=== PATIENT | female | born 1975 | race Caucasian/White ===

== ENCOUNTER 2016-05-27 09:56 | Inpatient (IN) | payer BC ==
[2016-05-27 10:34] LABS: Hematocrit 39.5 % (37.0-47.0); Hemoglobin 13.5 gm/dL (12.5-16.0); Mean Cell Volume 90.6 fl (78-100); Mean Corpuscular Hgb Conc 34.2 g/dl (32-36); Mean Platelet Volume 11.6 fl (6.0-9.5); Neutrophil # 7.9 K/mm3 (1.3-6.0); Platelet Count 212 K/mm3 (150-450); Red Blood Count 4.36 M/mm3 (4.2-5.4); White Blood Count 8.7 K/mm3 (4.0-10.5)
[2016-05-27] MEDS ORDERED: MORPHINE SULFATE 2 MG/ML DISP.SYRIN IV ONE ×3 (10:49→15:47)
[2016-05-27] MEDS ORDERED: ONDANSETRON HCL/PF 2 MG/ML VIAL IV ONE ×2 (10:49→15:47)
[2016-05-27] MEDS ORDERED: NORMAL SALINE 1,000 ML IV ONE (10:49)
[2016-05-27 10:55] LABS: Urine Bilirubin Negative (NEGATIVE); Urine Ketone 15 mg/dL (NEGATIVE); Urine Nitrite Negative (NEGATIVE); Urine Protein 30 mg/dL (NEGATIVE); Urine Specific Gravity 1.015 SP.GR. (1.005-1.010); Urine Urobilinogen Normal (NORMAL)
[2016-05-27 10:57] LABS: Albumin * 4.1 gm/dl (3.4-5.0); Anion Gap 13.6 mmol/L (6.8-13.8); Bilirubin, Total 0.6 mg/dL (0.0-1.1); Ca. Corrected For Albumin 8.3 mg/dL (8.4-10.2); Calcium * 8.7 mg/dL (7.9-10.9); Carbon Dioxide 25.7 mmol/L (24-32.6); Potassium 4.3 mmol/L (3.4-4.6); Total Protein 7.8 gm/dL (6.2-8.2)
--- NOTE | 2016-05-27 11:01 | ERNOTE ---
Abdominal HPI - Narrative Date of Service: 05/27/16 - General Chief Complaint: Abdominal Pain Time Seen by Provider: 05/27/16 10:41 Source: patient Exam Limitations: no limitations - Immun/Allergies/Home Medications Immunizatons: IMMUNIZATION HX Immunizations Up to Date Yes History of Influenza Vaccine Yes Hx Pneumococcal Vaccination Yes Allergies/Adverse Reactions: Allergies No Known Allergies Allergy (Verified 05/27/16 17:50) Home Medications: HOME MEDICATIONS Progesterone, Micronized [Progesterone] 100 mg PO DAILY 05/27/16 [Last Taken Unknown] - History of Present Illness Narrative: Pt. comes in with c/o abdominal pain for 2 days. Pt. denies any SOB, CP, diarrhea, or fever. Pt. does state that she has had nausea, vomiting, and chills. Pt. states that she tried yoga for pain relief and it helps slightly as well as lying on her L side. Pt. states that lying on her R side worsens the pain. Review of Systems - Review of Systems Constitutional: Present: no symptoms reported. Absent: recent illness, fever, chills, weakness, fatigue, malaise EYE: Present: no symptoms reported ENT: Present: no symptoms reported. Absent: nose pain, nose congestion, nasal drainage, throat swelling Respiratory: Present: no symptoms reported. Absent: shortness of breath, cough , wheezing Cardiology: Present: no symptoms reported. Absent: chest pain, palpitations, edema Gastrointestinal/Abdominal: Present: nausea, vomiting, abdominal pain. Absent: diarrhea, constipation Genitourinary: Present: no symptoms reported. Absent: frequency, pain, dysuria , decreased urinary output, discharge Musculoskeletal: Present: no symptoms reported. Absent: back pain, neck pain, joint pain Skin: Present: no symptoms reported. Absent: rash, change in color, change in hair/nails Neurological: Present: no symptoms reported. Absent: headache, dizziness/light- headedness, numbness, tingling All Other Systems: All systems neg except as marked - Patient's Past Medical History Patient History - Medical: No pertinent hx Patient History - Cardiac/Respiratory: No pertinent hx Patient History - Cancer: No Hx of Cancer Patient History - Surgical Procedures: No surgical history LMP (females 10-50): 1 month LMP (Calendar): 04/28/16 - Family History Mother Family History - Medical: Hypothyroidism Family History - Cardiac/Respiratory: No pertinent hx Family History - Cancer: No pertinent family hx Father Family History - Medical: No pertinent hx Family History - Cardiac/Respiratory: COPD Family History - Cancer: No pertinent family hx - Social History Living Situations: spouse Abuse History: No History of abuse Psych History: No pertinent hx Smoking Status: Never smoker Alcohol Use: none Drug Use: none - Immunizations Immunizations Up to Date: Yes Hx Pneumococcal Vaccination: Yes History of Influenza Vaccine: Yes Physical Exam - Physical Exam General Appearance: Present: wd/wn, alert, mild distress Eye Exam: Normal inspection: bilateral, PERRL: bilateral, EOMI: bilateral Ears, Nose, Throat: Present: normal ENT inspection, normal pharynx Neck: Present: normal inspection, nontender. Absent: lymphadenopathy (R), lymphadenopathy (L) Respiratory: Present: no respiratory distress, normal breath sounds, no accessory muscle use, chest nontender, lungs clear Cardiovascular/Chest: Present: no murmur, normal peripheral pulses, tachycardia Gastrointestinal/Abdominal: Present: normal bowel sounds, tenderness - RUQ, RLQ Back Exam: Present: normal inspection, normal range of motion, no CVA tenderness , no vertebral tenderness Extremity Exam: Present: normal inspection, non-tender, normal range of motion, no edema Neurological Exam: Present: alert, oriented, normal mood/affect, no motor/ sensory deficits Skin Exam: Present: normal color, warm/dry. Absent: pallor, skin rash ED Progress - Date and Time Seen: Date and Time: 05/27/16 17:[address] Martinez and he will come consult on pt to decide if it is appropriate for her to be cared for here or if she will need transferred. - Results and Orders Patient's Lab Results:: I have reviewed the patient's lab results. - Vital Signs Patient's Vital Signs:: I have reviewed the patient's vital signs. Vital Signs: Vital Signs 05/27/16 10:03 Temperature 36.5 C Pulse Rate 105 H Respiratory 16 Rate Blood Pressure 134/76 O2 Sat by Pulse 100 Oximetry - X-Ray X-Ray #1 X-Ray: abdomen Interpretation: Reviewed by me X-ray Comments: abnormal gas pattern with dilated loops of bowel - CT/Ultrasound CT/Ultrasound Narrative: CT abdomen IMPRESSION: 1. CT findings suggestive of high-grade small bowel obstruction, with sharp transition seen in the right side of the abdomen, terminating in a localized area of inflammation in the right lower quadrant. 2. There is crowding of the mesenteric vascular structures around a focal point in the right lower quadrant, with mesenteric stranding and vascular congestion as discussed above. Could represent inflammatory changes (e.g. infection or inflammatory bowel disease), but also consider possible internal hernia or restriction of the mesenteric root due to adhesions/band. 3. There is a tubular fluid and air filled structure within the right lower quadrant, adjacent to the abnormal small bowel loops as well as the cecum, which probably represents a locally dilated loop of small bowel but possible mesenteric abscess would be difficult to exclude. Consider short-term CT follow- up, if surgical intervention is not being considered at this time. 4. Mild free fluid in the pelvis. Mild ascites and perisplenic fluid. 5. Normal caliber appendix seen. - Progress/Reassessment Chief Complaint: Abdominal Pain Departure - Departure Clinical Impression: Small bowel obstruction Disposition: [facility] Condition: Serious
[2016-05-27 11:09] LABS: Urine Appearance Clear; Urine Blood 10 /ul (NEGATIVE); Urine Color Dark Yellow
[2016-05-27 11:10] LABS: Urine Bacteria 1+; Urine RBC 0-5 /hpf (0-5); Urine WBC None Seen /hpf (0-5); Urine Yeast Few - 1+
[2016-05-27] MEDS ORDERED: ONDANSETRON HCL/PF 2 MG/ML VIAL ONE ×2 (11:17→15:44)
[2016-05-27] MEDS ORDERED: MORPHINE SULFATE 2 MG/ML DISP.SYRIN ONE ×3 (11:17→15:44)
[2016-05-27] MEDS ORDERED: DIATRIZOATE MEGLU/DIATRIZO SOD 30 ML BTL ONE (12:21)
[2016-05-27] MEDS ORDERED: DIATRIZOATE MEGLU/DIATRIZO SOD 30 ML BTL PO ONE (12:21)
[2016-05-27] MEDS ORDERED: MORPHINE SULFATE 2 MG/ML DISP.SYRIN IV PRN (18:23)
[2016-05-27] MEDS ORDERED: ceFAZolin SODIUM/DEXTROSE,ISO 2 GM in Premix Bag 1 BAG IV ONE (18:50)
--- NOTE | 2016-05-27 19:03 | HP ---
Chief Complaint - Chief Complaint Date of Service: 05/27/16 Time of Service: 18:51 Chief Complaint: abdominal pain and vomiting History of Present Illness: She was traveling from [place] to [place] and stopped overnight in [place]. She was awakened at 1:30 AM with sudden severe mid abdominal pain. She subsequently had vomiting. She thought she might have the flu and went to the walk-in clinic at [facility], they recommended that she come to the emergency room here. She has never had pain like this before. Her abdomen hurts constantly and hurts worse if she moves and she cannot take a deep breath. She has waves of nausea and urgent vomiting. She has not had a bowel movement or passed gas today. She was evaluated in the emergency room which included a CAT scan. The CAT scan shows possible bowel obstruction with abnormal-appearing small bowel and the right lower quadrant which may represent an internal hernia. Her white blood cell count is normal. - Patient's Past Medical History Patient History - Medical: No pertinent hx, Other - she had pneumonia about 2 years ago and uses an inhaler occasionally (last time over 6 months ago. Patient History - Cardiac/Respiratory: No pertinent hx, Other - she had an episode of heart flutter about 2 years ago and underwent a cardiac workup including a Holter monitor which was negative. Patient History - Cancer: No Hx of Cancer Patient History - Surgical Procedures: No surgical history, Other - she had a BABY COUNSELOR exploration through a Pfannenstiel incision in the for an ovarian cyst Patient History - Other: None LMP (females 10-50): 1 month LMP (Calendar): 04/28/16 - Family History Family History:: no untoward family reactions to anesthesia, no familial bleeding tendencies - Family History Mother Family History - Medical: Hypothyroidism Family History - Cardiac/Respiratory: No pertinent hx Family History - Cancer: No pertinent family hx Father Family History - Medical: No pertinent hx Family History - Cardiac/Respiratory: COPD Family History - Cancer: No pertinent family hx - Social History Living Situations: spouse Abuse History: No History of abuse Psych History: No pertinent hx Smoking Status: Never smoker Have you smoked in the past 12 months: No Alcohol Use: none Drug Use: none - Immunizations Immunizations Up to Date: Yes Hx Pneumococcal Vaccination: Yes History of Influenza Vaccine: Yes Review Of Systems (GEN) - Review of Systems Generalized/Overall Review: Absent: Chills, Fever EENTM: Present: No Symptoms Reported Respiratory: Present: Other - Hurts her abdomen to take a deep breath. Absent: Cough, Shortness of Breath, Wheezing Abdominal: Present: Nausea, Vomiting, Abdominal Pain Genitourinary: Present: No Symptoms Reported Musculoskeletal: Present: No Symptoms Reported Neurological: Present: No Symptoms Reported Skin: Present: No Symptoms Reported Endocrine: Present: No Symptoms Reported Immunizations: IMMUNIZATION HX Immunizations Up to Date Yes History of Influenza Vaccine Yes Hx Pneumococcal Vaccination Yes Allergies/Adverse Reactions: Allergies Allergy/AdvReac Type Severity Reaction Status Date / Time No Known Allergies Allergy Verified 05/27/16 17:50 Home Medications: HOME MEDICATIONS Progesterone, Micronized [Progesterone] 100 mg PO DAILY 05/27/16 [Last Taken Unknown] Exam - Exam Vital Signs: Vital Signs - Last Taken Temp 36.7 C 05/27/16 17:41 Pulse 86 05/27/16 17:41 Resp 18 05/27/16 17:41 BP 138/83 05/27/16 17:41 Pulse Ox 99 05/27/16 17:41 Constitutional: Present: Alert, Oriented x3, Cooperative, Severe distress ENT Exam: Present: normal ENT inspection Eye Exam: bilateral eye: normal inspection Neck: Present: full range of motion, normal inspection Back Exam: Present: normal inspection, no CVA tenderness Breasts: Present: Exam deferred Respiratory: Present: lungs clear, no respiratory distress Cardiovascular/Chest: Present: normal peripheral pulses, regular rate, rhythm, no murmur Abdomen: Present: rebound tenderness, other - Tympanitic to percussion with percussion tenderness. Hyperactive cavernous bowel sounds /Rectal: Present: Exam deferred Extremity: Present: normal range of motion, normal inspection, no pedal edema, no calf tenderness Skin Exam: Present: normal color, other - Malar flushing Neurologic: Present: physical therapy technician II-XII nml as tested, normal cerebellar test, no motor/ sensory deficits Appearance: Present: appropriate appearance, appropriate insight Eye contact: Present: cooperative, good eye contact, normal speech Thoughts: Present: normal thought pattern Diagnostic Studies: Laboratory Results WBC 8.7 K/mm3 (4.0-10.5) 05/27/16 10:26 RBC 4.36 M/mm3 (4.2-5.4) 05/27/16 10:26 Hgb 13.5 gm/dL (12.5-16.0) 05/27/16 10: Hct 39.5 % (37.0-47.0) 05/27/16 10: MCV 90.6 fl (78-100) 05/27/16 10: MCH 31.0 pg (27-31) 05/27/16 10: MCHC 34.2 g/dl (32-36) 05/27/16 10: RDW 12.0 % (11.5-14.0) 05/27/16 10:26 Plt Count 212 K/mm3 (150-450) 05/27/16 10: MPV 11.6 fl (6.0-9.5) H 05/27/16 10: Immature Gran % (Auto) 0.30 % (0.001-0.429) 05/27/16 10: Immature Gran # (Auto) 0.03 K/mm3 (0.000-0.0310) 05/27/16 10: Neutrophils % 91.0 % (42-75.0) H 05/27/16 10: Lymphocytes % 6.0 % (20-51) L 05/27/16 10: Monocytes % 2.5 % (0.0-9) 05/27/16 10: Eosinophils % 0.0 % (0.0-3.0) 05/27/16 10: Basophils % 0.2 % (0.0-1.0) 05/27/16 10: Nucleated RBC % 0.0 k/mm3 (0-1) 05/27/16 10: Neutrophils # 7.9 K/mm3 (1.3-6.0) H 05/27/16 10: Lymphocytes # 0.5 k/mm3 (1.5-3.5) L 05/27/16 10: Monocytes # 0.2 k/mm3 (0.0-1.0) 05/27/16 10: Eosinophils # 0.0 k/mm3 (0.0-0.7) 05/27/16 10: Absolute Basophils 0.0 k/mm3 (0.0-0.1) 05/27/16 10: Sodium 138 mmol/L (132-142) 05/27/16 10:26 Plasma Sodium 138 mmol/L (130-142) 05/27/16 10:26 Potassium 4.3 mmol/L (3.4-4.6) 05/27/16 10:26 Chloride 103 mmol/L (97-106) 05/27/16 10:26 Carbon Dioxide 25.7 mmol/L (24-32.6) 05/27/16 10:26 Anion Gap 13.6 mmol/L (6.8-13.8) 05/27/16 10:26 BUN 7 mg/dL (3-23) 05/27/16 10:26 Creatinine 0.70 mg/dL (0.4-1.4) 05/27/16 10:26 Est GFR (Non-Af Amer) 97 mL/min (60-130) 05/27/16 10:26 BUN/Creatinine Ratio 10.0 (9.0-21.6) 05/27/16 10:26 Random Glucose 127 mg/dL (70-110) H 05/27/16 10:26 Calcium 8.7 mg/dL (7.9-10.9) 05/27/16 10:26 Calcium Adj for Albumin 8.3 mg/dL (8.4-10.2) L 05/27/16 10:26 Total Bilirubin 0.6 mg/dL (0.0-1.1) 05/27/16 10:26 AST 11 U/L (0-48) 05/27/16 10:26 ALT 14 U/L (19-67) L 05/27/16 10:26 Alkaline Phosphatase 46 U/L (50-170) L 05/27/16 10:26 C-Reactive Prot, Quant Less than 0.2 mg/dL (0.0-0.9) 05/27/16 10:46 Total Protein 7.8 gm/dL (6.2-8.2) 05/27/16 10:26 Albumin 4.1 gm/dl (3.4-5.0) 05/27/16 10:26 Amylase 54 U/L (25-115) 05/27/16 10:26 Lipase 90 U/L (73-393) 05/27/16 10:26 Urine Color Dark yellow 05/27/16 10:34 Urine Appearance Clear 05/27/16 10:34 Urine pH 8.0 pH (5.0-7.0) H 05/27/16 10:34 Ur Specific [place] 1.015 SP.GR. (1.005-1.010) 05/27/16 10:34 Urine Protein 30 mg/dL (NEGATIVE) H 05/27/16 10:34 Urine Glucose (UA) Negative mg/dL (NEGATIVE) 05/27/16 10:34 Urine Ketones 15 mg/dL (NEGATIVE) 05/27/16 10:34 Urine Blood 10 /ul (NEGATIVE) H 05/27/16 10:34 Urine Nitrate Negative (NEGATIVE) 05/27/16 10:34 Urine Bilirubin Negative mg/dl (NEGATIVE) 05/27/16 10:34 Prot Sulfosalicylic Acd Negative mg/dL (0) 05/27/16 10:34 Urine Urobilinogen Normal EU/dl (NORMAL) 05/27/16 10:34 Ur Leukocyte Esterase Negative /ul (NEGATIVE) 05/27/16 10:34 Urine RBC 0-5 /hpf (0-5) 05/27/16 10:34 Urine WBC None seen /hpf (0-5) 05/27/16 10:34 Ur Epithelial Cells 0-5 /hpf (0-5) 05/27/16 10:34 Urine Bacteria 1+ (NONE) H 05/27/16 10:34 Urine Yeast Few - 1+ (NONE) H 05/27/16 10:34 Urine Culture Comments No culture indicated 05/27/16 10:34 Urine HCG, Qual Negative (NEGATIVE) 05/27/16 10:34 CT scan shows abnormal small bowel with a transition zone and mesenteric congestion. There is a possible fluid collection in the right side of the abdomen and free fluid in the pelvis. The appendix appears normal. There is no free air. Assessment/Plan - Assessment/Plan (1) Small bowel obstruction Assessment: With previous surgery the most likely etiology of obstruction would be adhesions or adhesive band with internal hernia. Her physical findings and demeanor also suggest a significant problem. Drawings were used to explain the current findings and possible etiologies for the problem. Recommendation is for diagnostic laparoscopy with possible conversion to open operation. The risks and benefits of operation were explained. After an interactive discussion her questions were answered to her apparent satisfaction and she has given informed consent for operation. Problem: Acute
[2016-05-27] MEDS: RINGERS SOLUTION,LACTATED 1,000 ML IV ONE ×2 (19:17→22:49)
[2016-05-27] MEDS ORDERED: RINGERS LACTATED IV ONE (19:30)
[2016-05-27] MEDS ORDERED: ceFAZolin SODIUM 1 GM VIAL IM/IV ONE (19:40)
[2016-05-27] MEDS ORDERED: RINGERS SOLUTION,LACTATED 1,000 ML IV ONE (20:31)
[2016-05-27] MEDS ORDERED: BUPIVACAINE HCL/EPINEPHRINE 50 ML VIAL IJ ONE (21:19)
[2016-05-27] MEDS ORDERED: ONDANSETRON HCL/PF 2 MG/ML VIAL IV PRN (21:35)
[2016-05-27] MEDS ORDERED: HYDROmorphone HCL IN 0.9% NACL 50 ML CARTRIDGE IV PRN (21:35)
[2016-05-27] MEDS: PANTOPRAZOLE SODIUM 40 MG in NORMAL SALINE 100 ML IV SCH (23:03)
[2016-05-28] MEDS: DEXTROSE 5%-0.5 NORMAL SALINE 1,000 ML IV PRN ×2 (07:33→14:24)
--- NOTE | 2016-05-28 09:26 | OR ---
Operative Report - Dictated Report Narrative: OPERATIVE REPORT DATE OF OPERATION: 05/27/2016 PREOPERATIVE DIAGNOSIS: Abdominal pain. Bowel obstruction. POSTOPERATIVE DIAGNOSIS: Small bowel obstruction from an internal hernia with embarrassed but viable small intestine OPERATION: Diagnostic laparoscopy. Exploratory laparotomy with lysis of adhesive band and release of small bowel obstruction SURGEON: Laurel Martinez MD ANESTHESIA: Gen. arianne Doherty CRNA INDICATIONS FOR PROCEDURE: The patient is a 41-year-old female who awoke with severe abdominal pain this morning. She was evaluated in the emergency room with a CT scan. This shows small bowel obstruction with abnormal-appearing small bowel suggestive of internal herniation. FINDINGS: Omental adhesive band with internal hernia and embarrassed small intestine (successfully released) NARRATIVE OF PROCEDURE: The patient was identified preoperatively and prior to the administration of anesthetic a multidisciplinary timeout was observed. The patient was placed supine, SCDs were applied, and 2 g of intravenous Ancef administered. The patient's abdomen was prepped with Betadine solution and a generous operating field outlined with 4 sterile towels. The remainder the patient was covered with a sterile disposable drape. A short midline skin incision was made skirting to the right of the umbilicus. Dissection was carried through subcutaneous tissue until the fascia of the linea alba was identified. This was incised. The peritoneum was elevated and incised to allow entry into the abdominal cavity. A Hussan was introduced and the abdomen insufflated with CO2. The laparoscopic camera was introduced and the abdomen briefly explored. The liver, gallbladder, stomach, cecum and appendix all appeared normal. There was pooled bloody fluid in the pelvis. Directly under the umbilicus was a loop of embarrassed intestine. Decision was made to convert to open laparotomy and Hussan cannula was removed. The midline incision was extended. There was bloody peritoneal fluid which was sampled for culture. The embarrassed intestine was delivered onto the anterior abdominal wall inspected. Digital palpation revealed a tight window through which the bowel had herniated. The bowel was returned to the abdomen and the greater omentum traced to the adhesive band. This was carefully exposed and divided under direct vision, releasing the trapped small intestine. At this juncture the intestine was freely mobile and immediately appeared better perfused and viable. The abdomen was then briefly explored with no additional abnormal findings. The pelvis was suctioned clean and the abdomen irrigated with warm saline. The small bowel was again inspected and found to be improved in appearance with peristalsis. After receiving a correct sponge needle and instrument count attention was turned to closing the abdomen. The fascia and peritoneum were approximated with interrupted sutures of #1 Vicryl. Subcutaneous tissue was approximated with interrupted sutures of 3-0 chromic. The skin incision was approximated with a running subcuticular suture of 4-0 Vicryl. The operative site was washed and dried and a dressing of Exofin, folded 4 x 4 and Medipore tape was applied. The operative procedure was terminated at this point. The patient tolerated the anesthetic and procedure well without complication. There was no measurable blood loss. She was transferred to the recovery room awake extubated and in stable condition. Reviewed and electronically signed
[2016-05-28] MEDS ORDERED: BISACODYL 5 MG TABLET.DR PO ONE (17:53)
[2016-05-28] MEDS ORDERED: METOCLOPRAMIDE HCL 5 MG/ML VIAL IV ONE (17:53)
[2016-05-28] MEDS ORDERED: oxyCODONE HCL/ACETAMINOPHEN 1 TAB TABLET PO PRN (18:01)
--- NOTE | 2016-05-28 18:01 | PN ---
Dictated Progress Note - Date and Time Seen: Date: 05/28/16 Time: 17:54 - second visit - Progress Note Narrative: Vital Signs - Last Taken Temp 37 C 05/28/16 15:09 Pulse 84 05/28/16 15:09 Resp 18 05/28/16 15:09 BP 102/65 05/28/16 15:09 Pulse Ox 100 05/28/16 15:09 Culture 05/27/16 20:05 Body Fluid Culture - Preliminary Peritoneal Fluid No Growth POD #1 s/p release of SBO. VS normal. Minimal NG output and tolerated clamping/clear liquids. Presenting pain resolved and incisional pain is controlled with MID LEVEL DEVELOPER. Dressing dry. Good U/O. Abdomen slightly distended and tympanitic. Decreased bowel sounds, but can " feel things moving". Will D/C NG, encourage OOB. Add reglan for motility and single dose dulcolax since there was a lot of stool. Trial po pain med Explained surgery to patient and her mother.
[2016-05-28] MEDS: PANTOPRAZOLE SODIUM 40 MG in NORMAL SALINE 100 ML IV SCH (21:01)
[2016-05-29] MEDS ORDERED: BISACODYL 10 MG SUPP.RECT RC ONE (09:33)
[2016-05-29] MEDS ORDERED: METOCLOPRAMIDE HCL 5 MG/ML VIAL IV PRN (09:33)
[2016-05-29] MEDS ORDERED: BISACODYL 5 MG TABLET.DR PO ONE (12:41)
[2016-05-29] MEDS ORDERED: BISACODYL 10 MG SUPP.RECT RC PRN (12:41)
--- NOTE | 2016-05-29 12:47 | PN ---
Dictated Progress Note - Date and Time Seen: Date: 05/29/16 Time: 12:44 - second visit - Progress Note Narrative: Vital Signs - Last Taken Temp 36.5 C 05/29/16 10:07 Pulse 71 05/29/16 10:07 Resp 16 05/29/16 10:07 BP 104/55 05/29/16 10:07 Pulse Ox 99 05/29/16 10:07 Culture 05/27/16 20:05 Body Fluid Culture - Preliminary Peritoneal Fluid No Growth POD #2 VS normal, feels better. Tolerating clear liquids and no N/V. Still distended and no bowel function so will add reglan and dulcolax prior to advancing diet Change analgesic to po and saline lock IV encourage OOB Anticipate one additional midnight stay as she must be on regular diet with good bowel function prior to D/C
[2016-05-29] MEDS: ACETAMINOPHEN 500 MG TABLET PO PRN (19:58)
[2016-05-29] MEDS: PANTOPRAZOLE SODIUM 40 MG in NORMAL SALINE 100 ML IV SCH (22:04)
[2016-05-30] MEDS: ACETAMINOPHEN 500 MG TABLET PO PRN (07:31)
[2016-05-30 10:29] VITALS: BP 108/63
--- NOTE | 2016-05-30 12:17 | DS ---
(1) Small bowel obstruction Problem: Acute Description of Stay: Underwent diagnostic laparoscopy which revealed compromised small bowel so converted to opern laparotomy with lysis of adhesive band and release of internal hernia. The intestine improved and appeared viable. Tolerated procedure well and placed in Acute Care. Chlorhexidine wipes, pre-op antibiotic and SCD's for VTE prophylaxis. C&S peritoneal fluid no growth. Had NG until bowel function returned. VS remained normal . Presenting pain resolved and incisional discomfort controlled with IV and then po medication. Tolerated advanced diet and bowels moved. Incision remained clean. Ambulated independently. Discharged with instructions Procedures Performed: see notes below - diagnostic laparoscopy, exploratory laparotomy with lysis of adhesions Discharge Disposition: Home self care Disposition: Home self-care Condition: Good Discharge Activity: Activity as tolerated, No Lifting Discharge Diet: General/regular food Problem Oriented Discharge Instructions to Patient/Family: Exploratory Laparotomy, Adult, Care After Additional Patient Instructions (free text): given phone numbers to call for questions f/u with local physician to check incision approx 1 week Prescriptions (Any new or edited meds): oxyCODONE HCL/ACETAMINOPHEN [Percocet 5 MG/325 MG] 2 tab PO Q6H PRN #20 tablet PRN Reason: Pain Metoclopramide HCl [Reglan] 10 mg IV Q6H PRN #4 tab.sr PRN Reason: Nausea Complete Home Medications List: Complete Home Medication List: Progesterone, Micronized [Progesterone] 100 mg PO DAILY 05/27/16 Metoclopramide HCl [Reglan] 10 mg IV Q6H PRN #4 tab.sr 05/30/16 oxyCODONE HCL/ACETAMINOPHEN [Percocet 5 MG/325 MG] 2 tab PO Q6H PRN #20 tablet 05/30/16
[2016-05-30] MEDS ORDERED: METOCLOPRAMIDE HCL 10 MG TABLET PO PRN (12:37)
== END 2016-05-30 13:00 | disposition home or self-care (01) | DRG 337 ==
LOC: ER 09:56 → MS 17:21
PROVIDERS: ADMIT Surgery; ATTEND Surgery
PROC: 0DN80ZZ Release Small Intestine, Open Approach (ICD-10-PCS; principal; 2016-05-27 18:39)
PROC: 0YQA0ZZ Repair Bilateral Inguinal Region, Open Approach (ICD-10-PCS; 2016-05-27 18:39)
DX: K56.5 Intestinal adhesions [bands] with obstruction (postinfection) (principal)